=== PATIENT | female | born 1995 | race American Indian/Alaskan Native ===

== ENCOUNTER 2020-09-22 11:31 | Emergency (ER) | payer MEDICAID ==
[2020-09-22 12:26] VITALS: BP 128/85
--- NOTE | 2020-09-22 13:26 | Event Note ---
ED Screening Note Date of service: 09/22/20 Time: 13:25 ED Screening Note: Patient presents to the ER today with complaints of abdominal cramps and . Patient states that she found out about 3 to 4 weeks ago after taking home test that she was . Patient states her last menstrual cycle was from August 02-. Her first [facility] appointment this Monday with [facility]. In addition to the abdominal cramps she reports generalized weakness, intermittent nausea and vomiting and decreased appetite. She denies any bleeding. She is G4, P3 Ab0. Has medical history significant for chronic headaches as well as asthma. This initial assessment/diagnostic orders/clinical plan/treatment(s) is/are subject to change based on patients health status, clinical progression and re- assessment by fellow clinical providers in the ED. Further treatment and workup at subsequent clinical providers discretion. Patient/guardian urged not to elope from the ED as their condition may be serious if not clinically assessed and managed. Initial orders include:
[2020-09-22 14:10] LABS: Bacteria,Urine 1+ /HPF (Negative); Bilirubin,Urine NEG (Negative); Blood,Urine NEG (Negative); Color,Urine Yellow (Yellow); Mucus,Urine FEW /HPF; Protein,Urine <15 mg/dL mg/dL (Negative); Urobilinogen,Urine < 2.0 mg/dL (<2.0)
[2020-09-22 14:45] LABS: Basophils % (Auto) 0.6 % (0.0-1.8); Eosinophils % (Auto) 0.3 % (0.0-4.3); Hematocrit 41.6 % (30.3-42.9); Lymphocytes # (Auto) 1.9 K/mm3 (1.2-5.4); Lymphocytes % (Auto) 33.5 % (13.4-35.0); Mean Corpuscular HGB Conc 34 % (30-34); Mean Corpuscular Volume 89 fl (79-97); Monocytes # (Auto) 0.6 K/mm3 (0.0-0.8); Platelet Count 309 K/mm3 (140-440); Red Blood Count 4.66 M/mm3 (3.65-5.03)
[2020-09-22 14:53] LABS: Alanine Aminotransferase 8 units/L (7-56); Albumin 3.7 g/dL (3.9-5); BUN/Creatinine Ratio 6; Blood Urea Nitrogen 3 mg/dL (7-17); Hemolysis Index 8
--- NOTE | 2020-09-22 17:48 | Ultrasound Report ---
ULTRASOUND OBSTETRIC REASON FOR EXAM: PELVIC CRAMPING TECHNIQUE: Transabdominal and transvaginal ultrasound was performed to evaluate a first trimester pre gnancy. COMPARISON: None available. FINDINGS: FINDINGS: The pole, yolk sac, and gestational sac are normal in appearance. [place]-rump length: 10 mm. This corresponds with a gestational age of 7 weeks 0 days. heart rate: 137 bpm Perigestational hemorrhage: No evidence of perigestational hemorrhage on the provided images. MATERNAL FINDINGS: The uterus demonstrates otherwise unremarkable sonographic appearance.. 1.4 cm cystic structure is present within the right ovary, most consistent with a corpus luteum cyst. The left ovary demonstrates a normal sonographic appearance. Cul-de-sac: There is no free fluid. IMPRESSION: Viable intrauterine . Gestational age is 7 weeks 0 days by ultrasound. Recommend clinical sc reening and ultrasound follow-up in the second trimester to screen for anomalies Signer Name: Erick Christy MD Signed: 09/22/2020 5:43 PM Workstation Name: [id number]
--- NOTE | 2020-09-22 21:01 | Emergency Department Report ---
ED Female HPI - General Chief complaint: Abdominal Pain Stated complaint: BODY CRAMPING Source: patient Mode of arrival: Ambulatory Limitations: No Limitations - History of Present Illness Initial comments: 24-year-old Malaysian female [facility] emerge department complaining of discovering of her about 2 to 3 weeks ago and now she has been experiencing some suprapubic cramping and abdominal pain to the lower lower area with no vaginal bleeding or vaginal discharge. She reports no fever, chills, sweats sweats reports no hemoptysis no hematemesis hematochezia reports no dysuria. -: Gradual Location: suprapubic Radiation: non-radiating Severity: mild Quality: cramping Consistency: constant Improves with: none Worsens with: none Are you Now?: Yes Associated Symptoms: denies: denies other symptoms, vaginal discharge, vaginal bleeding, abdominal pain, nausea/vomiting, loss of appetite, dysuria, hematuria, shortness of breath, syncope - Related Data Previous Rx's Medication Instructions Recorded Last Taken Type Ibuprofen [Motrin] 600 mg PO Q8H PRN #15 tablet 09/27/15 Unknown Rx cephALEXin [Keflex] 500 mg PO Q8HR #21 cap 09/27/15 Unknown Rx Doxylamine Succinate/Vit B6 1 each PO BID #20 tablet. 09/22/20 Unknown Rx [Aliya Gray 10-10 mg Tablet] Allergies Allergy/AdvReac Type Severity Reaction Status Date / Time strawberry Allergy Swelling Verified 09/26/15 22:12 ED Review of Systems ROS: Stated complaint: BODY CRAMPING Other details as noted in HPI Comment: All other systems reviewed and negative ED Past Medical Hx - Past Medical History Previous Medical History?: Yes Hx Asthma: Yes - Surgical History Past Surgical History?: No - Social History Smoking Status: Never Smoker Substance Use Type: None - Medications Home Medications: Home Medications Medication Instructions Recorded Confirmed Last Taken Type Ibuprofen [Motrin] 600 mg PO Q8H PRN #15 tablet 09/27/15 Unknown Rx cephALEXin [Keflex] 500 mg PO Q8HR #21 cap 09/27/15 Unknown Rx Doxylamine Succinate/Vit B6 1 each PO BID #20 tablet. 09/22/20 Unknown Rx [Aliya Gray 10-10 mg Tablet] ED Physical Exam - General Limitations: No Limitations General appearance: alert, in no apparent distress - Head Head exam: Present: atraumatic, normocephalic - Eye Eye exam: Present: normal appearance, PERRL, EOMI Pupils: Present: normal accommodation - ENT ENT exam: Present: normal exam, mucous membranes moist - Neck Neck exam: Present: normal inspection, full ROM - Respiratory Respiratory exam: Present: normal lung sounds bilaterally. Absent: respiratory distress, wheezes, rales, chest wall tenderness, accessory muscle use - Cardiovascular Cardiovascular Exam: Present: regular rate, normal rhythm. Absent: systolic murmur, diastolic murmur, rubs, gallop - GI/Abdominal GI/Abdominal exam: Present: soft, normal bowel sounds. Absent: tenderness, guarding - Extremities Exam Extremities exam: Present: normal inspection, normal capillary refill - Back Exam Back exam: Present: normal inspection - Neurological Exam Neurological exam: Present: alert, oriented X3 - Psychiatric Psychiatric exam: Present: normal affect, normal mood - Skin Skin exam: Present: warm, dry, intact, normal color. Absent: rash ED Course Vital Signs 09/22/20 12:24 Temperature 98.6 F Pulse Rate 93 H Respiratory 18 Rate Blood Pressure 128/85 O2 Sat by Pulse 100 Oximetry ED Medical Decision Making - Lab Data Result diagrams: 09/22/20 13:35 09/22/20 13:35 Lab Results 09/22/20 09/22/20 09/22/20 Range/Units 13:35 13:35 13:35 WBC 5.7 (4.5-11.0) K/mm3 RBC 4.66 (3.65-5.03) M/mm3 Hgb 14.0 (10.1-14.3) gm/dl Hct 41.6 (30.3-42.9) % MCV 89 (79-97) fl MCH 30 (28-32) pg MCHC 34 (30-34) % RDW 13.0 L (13.2-15.2) % Plt Count 309 (140-440) K/mm3 Lymph % (Auto) 33.5 (13.4-35.0) % [place] % (Auto) 11.0 H (0.0-7.3) % Eos % (Auto) 0.3 (0.0-4.3) % Baso % (Auto) 0.6 (0.0-1.8) % Lymph # (Auto) 1.9 (1.2-5.4) K/mm3 [place] # (Auto) 0.6 (0.0-0.8) K/mm3 Eos # (Auto) 0.0 (0.0-0.4) K/mm3 Baso # (Auto) 0.0 (0.0-0.1) K/mm3 Seg Neutrophils % 54.6 (40.0-70.0) % Seg Neutrophils # 3.1 (1.8-7.7) K/mm3 Sodium 133 L (137-145) mmol/L Potassium 3.7 (3.6-5.0) mmol/L Chloride 95.7 L (98-107) mmol/L Carbon Dioxide 14 L (22-30) mmol/L Anion Gap 27 mmol/L BUN 3 L (7-17) mg/dL Creatinine 0.5 L (0.6-1.2) mg/dL Estimated GFR > 60 ml/min BUN/Creatinine Ratio 6 % Glucose 67 (65-100) mg/dL Calcium 9.0 (8.4-10.2) mg/dL Magnesium 1.90 (1.7-2.3) mg/dL Total Bilirubin 0.50 (0.1-1.2) mg/dL AST 14 (5-40) units/L ALT 8 (7-56) units/L Alkaline Phosphatase 66 (35-129) units/L Total Protein 7.1 (6.3-8.2) g/dL Albumin 3.7 L (3.9-5) g/dL Albumin/Globulin Ratio 1.1 % Lipase 9 L (13-60) units/L HCG, Quant 19250 H (0-4) mIU/mL Urine Color (Yellow) Urine Turbidity (Clear) Urine pH (5.0-7.0) Ur Specific [place] (1.003-1.030) Urine Protein (Negative) mg/dL Urine Glucose (UA) (Negative) mg/dL Urine Ketones (Negative) mg/dL Urine Blood (Negative) Urine Nitrite (Negative) Urine Bilirubin (Negative) Urine Urobilinogen (<2.0) mg/dL Ur Leukocyte Esterase (Negative) Urine WBC (Auto) (0.0-6.0) /HPF Urine RBC (Auto) (0.0-6.0) /HPF U Epithel Cells (Auto) (0-13.0) /HPF Urine Bacteria (Auto) (Negative) /HPF Urine Mucus /HPF 09/22/20 Range/Units 13:47 WBC (4.5-11.0) K/mm3 RBC (3.65-5.03) M/mm3 Hgb (10.1-14.3) gm/dl Hct (30.3-42.9) % MCV (79-97) fl MCH (28-32) pg MCHC (30-34) % RDW (13.2-15.2) % Plt Count (140-440) K/mm3 Lymph % (Auto) (13.4-35.0) % [place] % (Auto) (0.0-7.3) % Eos % (Auto) (0.0-4.3) % Baso % (Auto) (0.0-1.8) % Lymph # (Auto) (1.2-5.4) K/mm3 [place] # (Auto) (0.0-0.8) K/mm3 Eos # (Auto) (0.0-0.4) K/mm3 Baso # (Auto) (0.0-0.1) K/mm3 Seg Neutrophils % (40.0-70.0) % Seg Neutrophils # (1.8-7.7) K/mm3 Sodium (137-145) mmol/L Potassium (3.6-5.0) mmol/L Chloride (98-107) mmol/L Carbon Dioxide (22-30) mmol/L Anion Gap mmol/L BUN (7-17) mg/dL Creatinine (0.6-1.2) mg/dL Estimated GFR ml/min BUN/Creatinine Ratio % Glucose (65-100) mg/dL Calcium (8.4-10.2) mg/dL Magnesium (1.7-2.3) mg/dL Total Bilirubin (0.1-1.2) mg/dL AST (5-40) units/L ALT (7-56) units/L Alkaline Phosphatase (35-129) units/L Total Protein (6.3-8.2) g/dL Albumin (3.9-5) g/dL Albumin/Globulin Ratio % Lipase (13-60) units/L HCG, Quant (0-4) mIU/mL Urine Color Yellow (Yellow) Urine Turbidity Clear (Clear) Urine pH 7.0 (5.0-7.0) Ur Specific [place] 1.011 (1.003-1.030) Urine Protein <15 mg/dl (Negative) mg/dL Urine Glucose (UA) Neg (Negative) mg/dL Urine Ketones 80 (Negative) mg/dL Urine Blood Neg (Negative) Urine Nitrite Neg (Negative) Urine Bilirubin Neg (Negative) Urine Urobilinogen < 2.0 (<2.0) mg/dL Ur Leukocyte Esterase Neg (Negative) Urine WBC (Auto) 2.0 (0.0-6.0) /HPF Urine RBC (Auto) 1.0 (0.0-6.0) /HPF U Epithel Cells (Auto) 7.0 (0-13.0) /HPF Urine Bacteria (Auto) 1+ (Negative) /HPF Urine Mucus Few /HPF - Radiology Data Radiology results: report reviewed [address] [place] [address] Ultrasound Report Signed Patient: BLAS FERRARI MR#: [id number] : 1995 Acct:[id number] Age/Sex: 24 / F ADM Date: 09/22/20 Loc: ED Attending Dr: Ordering Physician: LEXIE BARRIOS MD Date of Service: 09/22/20 Procedure(s): US OB transvaginal Accession Number(s): [id number] cc: LEXIE BARRIOS MD ULTRASOUND OBSTETRIC REASON FOR EXAM: PELVIC CRAMPING TECHNIQUE: Transabdominal and transvaginal ultrasound was performed to evaluate a first trimester . COMPARISON: None available. FINDINGS: FINDINGS: The pole, yolk sac, and gestational sac are normal in appearance. [place]-rump length: 10 mm. This corresponds with a gestational age of 7 weeks 0 days. heart rate: 137 bpm Perigestational hemorrhage: No evidence of perigestational hemorrhage on the provided images. MATERNAL FINDINGS: The uterus demonstrates otherwise unremarkable sonographic appearance.. 1.4 cm cystic structure is present within the right ovary, most consistent with a corpus luteum cyst. The left ovary demonstrates a normal sonographic appearance. Cul-de-sac: There is no free fluid. IMPRESSION: Viable intrauterine . Gestational age is 7 weeks 0 days by ultrasound. Recommend clinical screening and ultrasound follow-up in the second trimester to screen for anomalies Signer Name: Maurice Christy MD Signed: 09/22/2020 5:43 PM Workstation Name: [id number] Transcribed By: VIVIENNE Dictated By: MAURICE CHRISTY MD Electronically Authenticated By: MAURICE CHRISTY MD Signed Date/Time: 09/22/201742 DD/ 40 TD/TT: Print Cancel - Medical Decision Making This patient presents with suprapubic/pelvic pain in the first trimester, differential diagnosis includes ectopic , IUP, month threatened/inevitable , along with a completed . Patient is HDS and without a history of coagulopathy or infectious symptoms. The ultrasound does reveal an IUP at 7 weeks with an elevated hCG quant Based on exam history and ED work-up patient presentation is not consistent with an ectopic , life-threatening coagulopathy, trauma, serious bacterial infection, central process or other emergency Critical care attestation.: If time is entered above; I have spent that time in minutes in the direct care of this critically ill patient, excluding procedure time. ED Disposition Clinical Impression: Abdominal pain during Disposition: DC-01 TO HOME OR SELFCARE Is pt being admited?: No Does the pt Need Aspirin: No Condition: Stable Instructions: Abdominal Pain During , Abdominal Pain (ED) Additional Instructions: Please keep your appointment with your CLIENT FINANCE ANALYST Prescriptions: Doxylamine Succinate/Vit B6 [Aliya Gray 10-10 mg Tablet] 1 each PO BID #20 tablet. Referrals: PRIMARY CAREMD [Primary Care Provider] - 3-5 Days
== END 2020-09-22 21:12 | disposition home or self-care (01) ==
LOC: ED 11:31
DX: O26.891 Other specified pregnancy related conditions, first trimester (principal); R10.2 Pelvic and perineal pain; J45.909 Unspecified asthma, uncomplicated; Z3A.01 Less than 8 weeks gestation of pregnancy; Z79.1 Long term (current) use of non-steroidal anti-inflammatories (NSAID); Z79.899 Other long term (current) drug therapy; Z91.018 Allergy to other foods
CPT/HCPCS: 36415; 76801; 76817; 80053; 81001; 83690; 83735; 84702; 85025

== ENCOUNTER 2020-10-02 21:21 | Emergency (ER) | payer MEDICAID ==
[2020-10-02 23:30] VITALS: BP 113/79
[2020-10-03 01:09] LABS: Basophils % (Auto) 0.3 % (0.0-1.8); Eosinophils % (Auto) 0.2 % (0.0-4.3); Hematocrit 38.7 % (30.3-42.9); Hemoglobin 13.4 gm/dl (10.1-14.3); Lymphocytes # (Auto) 1.5 K/mm3 (1.2-5.4); Mean Corpuscular HGB Conc 35 % (30-34); Mean Corpuscular Volume 90 fl (79-97); Monocytes # (Auto) 0.7 K/mm3 (0.0-0.8); Monocytes % (Auto) 10.6 % (0.0-7.3); Platelet Count 300 K/mm3 (140-440); Red Blood Count 4.32 M/mm3 (3.65-5.03); Red Cell Distribution Width 13.1 % (13.2-15.2)
[2020-10-03 01:30] LABS: Alanine Aminotransferase 11 units/L (7-56); Albumin 4.7 g/dL (3.9-5); Blood Urea Nitrogen 7 mg/dL (7-17); Calcium 9.5 mg/dL (8.4-10.2); Hemolysis Index 6
[2020-10-03 01:32] LABS: BUN/Creatinine Ratio 14
[2020-10-03 03:08] LABS: Bacteria,Urine 1+ /HPF (Negative); Bilirubin,Urine NEG (Negative); Blood,Urine NEG (Negative); Color,Urine Yellow (Yellow); Mucus,Urine 3+ /HPF; Urobilinogen,Urine < 2.0 mg/dL (<2.0)
--- NOTE | 2020-10-08 12:39 | Electrocardiograph Report ---
[facility] Test Date: 2020-10-02 Test Time: 23:38:38 Pat Name: BLAS FERRARI Department: Room: Gender: F [employer]: MAYLIN : 1995 Requested By: CELSO VILLANUEVA Order Number: [id number] Reading MD: Charles Islas Measurements Intervals [place] Rate: 82 P: 84 MI: 131 QRS: 50 QRSD: 86 T: 24 QT: 360 QTc: 421 Interpretive Statements Sinus rhythm Probable left atrial enlargement No previous ECG available for comparison Electronically Signed On 10-08-2020 12:39:20 EDT by Charles Islas
== END 2020-10-02 23:49 | disposition left against medical advice (07) ==
LOC: ED 21:21
DX: R42 Dizziness and giddiness (principal); Z53.21 Procedure and treatment not carried out due to patient leaving prior to being seen by health care provider
CPT/HCPCS: 36415; 80053; 81001; 83735; 84702; 85025; 86900; 86901; 93005